=== PATIENT | male | born 1985 | race Two or more races ===

== ENCOUNTER 2018-08-18 21:13 | Emergency (ER) | payer OTHER ==
[~2018-08-18] VITALS: Ht 182.9 cm; Wt 118.4 kg
[2018-08-18 22:24] LABS: Basophils # (auto) 0.1 uL; Basophils % (auto) 0.9 % (0.0-2.0); Eosinophils # (auto) 0.2 uL; Eosinophils % (auto) 2.3 % (0.0-7.0); Hematocrit 46.7 % (41.0-53.0); Hemoglobin 16.6 g/dL (13.5-17.5); Lymphocytes # (auto) 2.7 uL; Lymphocytes % (auto) 40.7 % (10.0-50.0); Mean Corpuscular Hemoglobin 29.8 pg (28.0-32.0); Mean Corpuscular Hgb Conc. 35.6 g/dL (32.0-36.0); Mean Corpuscular Volume 83.7 fL (80.0-100.0); Monocytes # (auto) 0.8 uL; Monocytes % (auto) 11.9 % (0.0-12.0); Neutrophils # (auto) 2.9 uL; Neutrophils % (auto) 44.2 % (37.0-80.0); Nucleated Red Blood Cells % 0.2 %; Platelet Count (auto) 201 10^3/uL (140-450); Red Blood Cells 5.57 10^6/uL (4.5-5.90); White Blood Cell 6.7 10^3/uL (4.4-10.8)
[2018-08-18 22:34] LABS: Alanine Aminotransferase 83 U/L (16-61); Albumin 4.3 g/dL (3.4-5.0); Anion Gap 7 (5-15); Aspartate Aminotransferase 24 U/L (15-37); BUN/Creatinine Ratio 25.3; Blood Urea Nitrogen 24 mg/dL (7-18); Calcium 8.8 mg/dL (8.5-10.1); Carbon Dioxide 26 mmol/L (21-32); Chloride 100 mmol/L (98-107); GFR African American 118 mL/min; GFR Non-African American 98 mL/min; Glucose 312 mg/dL (74-106); Magnesium 2.3 mg/dL (1.6-2.6); Potassium 3.4 mmol/L (3.5-5.1); Sodium 133 mmol/L (136-145)
[2018-08-18 22:35] LABS: INR 0.91 (0.9-1.15); Prothrombin Time 9.8 sec (9.27-12.13)
[2018-08-18 22:37] LABS: Alkaline Phosphatase 67 U/L (45-117); Bilirubin, Total 1.3 mg/dL (0.2-1.0)
[2018-08-19] MEDS ORDERED: cefTRIAXone 1GM/50ML D5W 50 ML IV ONE (02:00)
[2018-08-19] MEDS ORDERED: InsuLIN REG 1unit/0.01ml Soln (100units/ml) IV ONE (02:00)
[2018-08-19] MEDS ORDERED: SODIUM CHLORIDE 0.9% 1,000 ML IV ONE (02:00)
[2018-08-19 02:57] VITALS: BP 129/69
== END 2018-08-19 03:15 | disposition home or self-care (01) ==
LOC: ER 21:13
DX: J06.9 Acute upper respiratory infection, unspecified (principal); R51 Headache; E11.9 Type 2 diabetes mellitus without complications
CPT/HCPCS: 36415; 71046; 80053; 82962; 83735; 83880; 84443; 84484; 85025; 85610; 85730; 87070; 93005; 96365; 96375; 99284; J7030